=== PATIENT | male | born 1965 | race Caucasian/White ===

== ENCOUNTER → 2017-05-09 | Outpatient (CLI) | payer BC ==
[~2017-05-09] MED LIST: ALPRAZOLAM PO; ALPRAZOLAM0.25 MG PO; ATENOLOL25 MG PO; CELEXA20 MG PO; CENTURY CARDIO1 EACH PO; COLACE PO; HYDROCODON-ACE1 EAC1 PO; K-DUR20 ME1 PO; LASIX PO; LORTAB 7.51 TAB PO; MEGACE ORA400 MG/10 PO; MOBIC PO; MULTI VITAMIN1 EACH PO; NEXIUM; NEXIUM PO; NO MEDICATIONS; PERCOCET 7.5-31 EACH PO; PERCOCET5/325 PO; PERCOCET7.5 PO; PHENERGAN25 MG PO; PRILOSEC40 MG PO; TENORMIN25 M1 PO; TRAMADOL HCL50 M1 PO; VICOPROFEN 200-1 TAB; ZEGERID 40 MG C1 CAP PO; [UNRECOGNIZED DRUG - OTHER] TOP
--- NOTE | ~2017-05-09 | US6 ---
[facility] A Service of [facility] & [facility] RADIOLOGY TEXT RESULTS PATIENT: DEVI HOSKINS LOCATION: [facility] : 69 UNIT #: [id number] AGE: [address]: PARRISH HAWKINS JR SEX: M ORDER DR: [id number] [facility] [address] [place], [place] [address] [id number] O MR#: [id number] Acc #: [id number] NAME: DEVI HOSKINS : 1965 SEX: M STUDY DATE/TIME: 05/09/2017 7:47 UNIT: [facility] ROOM: STUDY DESCRIPTION: US Abdominal Limited Attending Physician: Jerry Hawkins M.D. Referring Physician: Jerry Hawkins M.D. Ordering Physician: Jerry Hawkins M.D. Primary Care Physician: Primary Care Physician No MEDICAL IMAGING REPORT This report is preliminary unless electronic signature is present EXAM Right upper quadrant ultrasound, 05/09/2017 HISTORY Abnormally elevated liver enzymes on 05/07/2017. Cholecystectomy. FINDINGS The liver demonstrates an increase in echotexture with attenuation of the ultrasound beam characteristic of fatty infiltration. No cystic or solid mass lesions were seen in the liver. The intra and extrahepatic bile ducts are not dilated. The gallbladder is surgically absent as per patient history. The common duct measures 6.0 mm. The pancreas and right kidney are normal. IMPRESSION 1. Fatty infiltration of the liver. 2. Surgical absence of the gallbladder. Dictated by... Heath Hernandez M.D. THIS IS AN ELECTRONICALLY VERIFIED REPORT Heath Hernandez M.D. at 05/10/2017 10:17 AM HOLLY/zaheer TD: 05/09/2017 09:01 JOB #: [id number] MEDICAL IMAGING REPORT Page 1 of 1 COPY
== END | disposition home or self-care (01) ==
LOC: CGUS 07:16
DX: R74.8 Abnormal levels of other serum enzymes (principal); K76.0 Fatty (change of) liver, not elsewhere classified; Z90.49 Acquired absence of other specified parts of digestive tract
CPT/HCPCS: 76705